=== PATIENT | male | born 1945 | race Caucasian/White ===

== ENCOUNTER 2018-05-16 19:30 | Outpatient (CLI) | payer MEDICARE | END 2018-05-16 19:31 | disposition home or self-care (01) | LOC: SLEEPLAB 19:30 | PROVIDERS: ATTEND Internal Medicine | DX: G47.33 Obstructive sleep apnea (adult) (pediatric) (principal); R53.83 Other fatigue; R35.1 Nocturia; G47.31 Primary central sleep apnea | CPT/HCPCS: 95811 ==

== ENCOUNTER 2018-06-21 19:30 | Outpatient (CLI) | payer MEDICARE | END 2018-06-21 19:31 | disposition home or self-care (01) | LOC: SLEEPLAB 19:30 | PROVIDERS: ATTEND Internal Medicine | DX: G47.33 Obstructive sleep apnea (adult) (pediatric) (principal); G47.31 Primary central sleep apnea; I48.91 Unspecified atrial fibrillation | CPT/HCPCS: 95811 ==

== ENCOUNTER 2018-08-10 19:30 | Outpatient (CLI) | payer MEDICARE, OTHER | END 2018-08-10 19:31 | disposition home or self-care (01) | LOC: SLEEPLAB 19:30 | PROVIDERS: ATTEND Internal Medicine | DX: G47.33 Obstructive sleep apnea (adult) (pediatric) (principal); R53.83 Other fatigue; R51 Headache; E66.9 Obesity, unspecified; R35.1 Nocturia; G47.31 Primary central sleep apnea; Z68.33 Body mass index [BMI] 33.0-33.9, adult | CPT/HCPCS: 95811 ==

== ENCOUNTER 2019-08-10 14:04 | Outpatient (CLI) | payer MEDICARE, OTHER ==
--- NOTE | 2019-08-10 15:12 | RAD ---
LUMBAR SPINE 3 VIEWS: HISTORY: Low back pain. FINDINGS: Degenerative changes are present. No fracture, subluxation, or bone destruction is identified. Vasc ular calcifications are noted. IMPRESSION: Lumbar spondylosis. POS: [facility]
== END 2019-08-10 14:05 | disposition home or self-care (01) ==
LOC: RAD-FRANK 14:04
PROVIDERS: ATTEND Nurse Practitioner Family
DX: M54.5 Low back pain (principal); M47.816 Spondylosis without myelopathy or radiculopathy, lumbar region
CPT/HCPCS: 72100

== ENCOUNTER 2021-06-22 14:48 | Inpatient (IN) | payer MEDICARE, OTHER ==
[2021-06-22 15:36] LABS: #Basophils 0.1 thou/uL (0.0-0.2); #Eosinphils 0.1 thou/uL (0.0-0.7); #Monocytes 0.4 thou/uL (0.11-0.59); #Neutrophils 7.1 thou/uL (1.40-6.50); %Basophils 0.8 % (0.0-1.0); %Eosinophils 1.2 % (0.0-10.0); %Lymphocytes 11.5 % (21.0-51.0); %Monocytes 4.6 % (0.0-10.0); Hemoglobin 13.5 g/dL (14.0-18.0); Mean Corpuscular HGB CONC 34.8 g/dL (32.0-36.0); Mean Corpuscular Hemoglobin 34.1 pg (27.0-31.0); Mean Platelet Volume 7.7 fL (7.4-10.4); Platelet Count 278 thou/uL (130-400); RBC Distribution Width 12.7 % (11.5-14.5); Red Blood Cell (RBC) Count 3.96 mill/uL (4.70-6.10); White Blood Cell (WBC) Count 8.7 thou/uL (4.8-10.8)
[2021-06-22 15:59] LABS: ALT (SGPT) 28 U/L (8-55); AST (SGOT) 37 U/L (5-34); Albumin 3.5 g/dL (3.4-4.8); Alkaline Phosphatase 83 U/L (40-110); Anion Gap 17 mmol/L (10-20); BUN (Urea Nitrogen) 26 mg/dL (8.4-25.7); Bilirubin, Total 0.9 mg/dL (0.2-1.2); Calc. Creatinine Clearance 0 mL/min (70-130); Calcium 9.4 mg/dL (7.8-10.44); Carbon Dioxide 24 mmol/L (23-31); Chloride 95 mmol/L (98-107); Globulin 4.2 g/dL (2.4-3.5); Glucose 309 mg/dL (83-110); Potassium 4.2 mmol/L (3.5-5.1); Protein, Total 7.7 g/dL (5.8-8.1); Sodium 132 mmol/L (136-145)
[2021-06-22] MEDS ORDERED: Aspirin Chewable 81 MG TAB ONE (17:09)
[2021-06-22 18:34] LABS: INR-International Normal Ratio 2.2; Prothrombin Time 24.7 sec (12.0-14.7)
[2021-06-22 18:36] LABS: PTT 52.6 sec (22.9-36.1)
[2021-06-22] MEDS ORDERED: Acetaminophen 500 MG TAB ONE (19:15)
[2021-06-22 19:16] LABS: Troponin I 0.028 ng/mL (< 0.028)
[2021-06-22] MEDS ORDERED: Ondansetron PF 4 MG/2 ML Vial IVP PRN (20:30)
[2021-06-22] MEDS ORDERED: Acetaminophen 325 MG TAB PO PRN (20:30)
[2021-06-22] MEDS ORDERED: Ondansetron ODT 4 MG TAB SL PRN (20:30)
[2021-06-22 20:50] VITALS: BMI 33.7
[2021-06-22] MEDS ORDERED: Dexamethasone 4 mg/ml Vial SLOW IVP SCH (21:18)
[2021-06-22] MEDS ORDERED: HumaLOG 300 UNITS/3 ML VIAL SC PRN ×2 (21:24)
[2021-06-22] MEDS ORDERED: Dextrose 5% in Water 1,000 ML IV PRN (21:24)
[2021-06-22] MEDS ORDERED: Dextrose 50% Abboject 50 ML SYRINGE SLOW IVP PRN (21:24)
[2021-06-22] MEDS ORDERED: Enoxaparin Sodium 40 MG/0.4 ML SYRINGE SC SCH (21:30)
[2021-06-22 22:00] LABS: Troponin I 0.026 ng/mL (< 0.028)
[2021-06-23 05:27] LABS: #Lymphocytes 0.6 thou/uL (1.20-3.40); #Monocytes 0.2 thou/uL (0.11-0.59); %Basophils 0.2 % (0.0-1.0); %Eosinophils 0.2 % (0.0-10.0); %Lymphocytes 9.3 % (21.0-51.0); %Monocytes 3.6 % (0.0-10.0); %Neutrophils 86.7 % (42.0-75.0); Mean Corpuscular HGB CONC 33.6 g/dL (32.0-36.0); Mean Corpuscular Hemoglobin 33.2 pg (27.0-31.0); Mean Corpuscular Volume 98.8 fL (78.0-98.0); Mean Platelet Volume 7.6 fL (7.4-10.4); Platelet Count 231 thou/uL (130-400); RBC Distribution Width 12.7 % (11.5-14.5); Red Blood Cell (RBC) Count 3.62 mill/uL (4.70-6.10); White Blood Cell (WBC) Count 6.9 thou/uL (4.8-10.8)
[2021-06-23 05:46] LABS: Anion Gap 15 mmol/L (10-20); BUN (Urea Nitrogen) 24 mg/dL (8.4-25.7); Calc. Creatinine Clearance 64 mL/min (70-130); Calcium 8.6 mg/dL (7.8-10.44); Carbon Dioxide 22 mmol/L (23-31); Chloride 100 mmol/L (98-107); Glucose 288 mg/dL (83-110); Potassium 4.3 mmol/L (3.5-5.1); Sodium 133 mmol/L (136-145)
[2021-06-23] MEDS: Cholecalciferol (Vitamin D3) 400 UNITS TAB PO SCH (07:44)
[2021-06-23] MEDS: Zinc Sulfate 220 MG CAP PO SCH (07:44)
[2021-06-23] MEDS: Ascorbic Acid 500 mg Chewable Tablet PO SCH (07:44)
[2021-06-23] MEDS: Dexamethasone 4 mg/ml Vial SLOW IVP SCH (07:45)
[2021-06-23] MEDS ORDERED: Dextrose 5% in Water 1,000 ML IV PRN (08:06)
[2021-06-23] MEDS ORDERED: Dextrose 50% Abboject 50 ML SYRINGE SLOW IVP PRN (08:06)
[2021-06-23] MEDS: glipiZIDE 10 MG TAB PO SCH ×2 (08:42→20:52)
[2021-06-23] MEDS: Carvedilol 6.25 MG TAB PO SCH ×2 (08:42→20:52)
[2021-06-23] MEDS: Multivitamin W/ Minerals 1 TAB PO SCH (08:42)
[2021-06-23] MEDS: Azithromycin 250 MG TAB PO SCH (08:43)
[2021-06-23] MEDS: Pantoprazole 40 MG VIAL IVP SCH (08:43)
[2021-06-23] MEDS: Bumetanide 1 MG TAB PO SCH (08:43)
[2021-06-23] MEDS: Atorvastatin Calcium 40 MG TAB PO SCH (08:43)
[2021-06-23] MEDS: Allopurinol 100 MG TAB PO SCH (08:43)
[2021-06-23] MEDS: cefTRIAXone\\ROCEPHIN 2 GM in Sodium Chloride 0.9% 100 ML IVPB SCH (08:44)
[2021-06-23] MEDS ORDERED: SAW PALMETTO 450 MG PO SCH (09:00)
[2021-06-23] MEDS ORDERED: Enoxaparin Sodium 40 MG/0.4 ML SYRINGE SC SCH (09:00)
[2021-06-23] MEDS ORDERED: Non-Formulary Item 1 EACH (Bumetanide [Bumetanide] 2 MG Tablet) PO SCH (09:00)
[2021-06-23] MEDS ORDERED: Non-Formulary Item 1 EACH (Levothyroxine Sodium [Levothyroxine] 125 MCG Capsule) PO SCH (09:00)
[2021-06-23] MEDS: Insulin Regular 300 UNITS/3 ML VIAL SC PRN ×3 (10:57→20:51)
[2021-06-23 11:36] LABS: SARS-CoV-2 PCR by NAA DETECTED (NotDetected)
[2021-06-23] MEDS: Warfarin Sodium 7.5 MG TAB PO SCH (16:01)
[2021-06-23] MEDS: Benzonatate 100 MG CAP PO PRN (20:51)
[2021-06-23] MEDS: Lantus 1000 UNITS/10 ML VIAL SC SCH (21:17)
[2021-06-23 23:23] LABS: Anion Gap 18 mmol/L (10-20); BUN (Urea Nitrogen) 32 mg/dL (8.4-25.7); Calc. Creatinine Clearance 51 mL/min (70-130); Calcium 7.9 mg/dL (7.8-10.44); Carbon Dioxide 19 mmol/L (23-31); Chloride 100 mmol/L (98-107); Glucose 482 mg/dL (83-110); Potassium 4.3 mmol/L (3.5-5.1); Sodium 133 mmol/L (136-145)
[2021-06-24] MEDS ORDERED: Insulin Regular 300 UNITS/3 ML VIAL SC SCH (00:45)
[2021-06-24] MEDS: Levothyroxine Sodium 125 MCG TAB PO SCH (05:09)
[2021-06-24 05:51] LABS: #Lymphocytes 0.6 thou/uL (1.20-3.40); #Monocytes 0.4 thou/uL (0.11-0.59); #Neutrophils 8.1 thou/uL (1.40-6.50); %Basophils 0.1 % (0.0-1.0); %Eosinophils 0.3 % (0.0-10.0); %Lymphocytes 6.9 % (21.0-51.0); %Monocytes 4.2 % (0.0-10.0); %Neutrophils 88.5 % (42.0-75.0); Hemoglobin 12.5 g/dL (14.0-18.0); Mean Corpuscular HGB CONC 34.7 g/dL (32.0-36.0); Mean Corpuscular Hemoglobin 33.9 pg (27.0-31.0); Mean Corpuscular Volume 97.9 fL (78.0-98.0); Mean Platelet Volume 7.7 fL (7.4-10.4); Platelet Count 304 thou/uL (130-400); RBC Distribution Width 12.8 % (11.5-14.5); Red Blood Cell (RBC) Count 3.67 mill/uL (4.70-6.10); White Blood Cell (WBC) Count 9.2 thou/uL (4.8-10.8)
[2021-06-24 05:58] LABS: Prothrombin Time 31.4 sec (12.0-14.7)
[2021-06-24 06:17] LABS: Anion Gap 14 mmol/L (10-20); BUN (Urea Nitrogen) 30 mg/dL (8.4-25.7); CRP (Inflammatory) 11.53 mg/dL (= or < 0.5); Calc. Creatinine Clearance 57 mL/min (70-130); Calcium 9.1 mg/dL (7.8-10.44); Carbon Dioxide 25 mmol/L (23-31); Chloride 101 mmol/L (98-107); Glucose 345 mg/dL (83-110); Potassium 4.1 mmol/L (3.5-5.1); Sodium 136 mmol/L (136-145)
[2021-06-24] MEDS: Insulin Regular 300 UNITS/3 ML VIAL SC PRN ×4 (06:30→20:39)
[2021-06-24] MEDS ORDERED: Dextrose 5% in Water 1,000 ML IV PRN (07:43)
[2021-06-24] MEDS ORDERED: Dextrose 50% Abboject 50 ML SYRINGE SLOW IVP PRN (07:43)
[2021-06-24] MEDS: Allopurinol 100 MG TAB PO SCH (08:48)
[2021-06-24] MEDS: Azithromycin 250 MG TAB PO SCH (08:49)
[2021-06-24] MEDS: Atorvastatin Calcium 40 MG TAB PO SCH (08:49)
[2021-06-24] MEDS: Ascorbic Acid 500 mg Chewable Tablet PO SCH (08:49)
[2021-06-24] MEDS: Bumetanide 1 MG TAB PO SCH (08:50)
[2021-06-24] MEDS: Carvedilol 6.25 MG TAB PO SCH ×2 (08:51→20:39)
[2021-06-24] MEDS: cefTRIAXone\\ROCEPHIN 2 GM in Sodium Chloride 0.9% 100 ML IVPB SCH (08:52)
[2021-06-24] MEDS: Dexamethasone 4 mg/ml Vial SLOW IVP SCH (08:53)
[2021-06-24] MEDS: Cholecalciferol (Vitamin D3) 400 UNITS TAB PO SCH (08:53)
[2021-06-24] MEDS: glipiZIDE 10 MG TAB PO SCH ×2 (08:55→20:40)
[2021-06-24] MEDS: Lantus 1000 UNITS/10 ML VIAL SC SCH ×2 (08:57→20:40)
[2021-06-24] MEDS: Multivitamin W/ Minerals 1 TAB PO SCH (08:58)
[2021-06-24] MEDS: Zinc Sulfate 220 MG CAP PO SCH (08:59)
[2021-06-24] MEDS: Pantoprazole 40 MG VIAL IVP SCH (10:09)
[2021-06-24] MEDS: SAW PALMETTO 450 MG PO SCH ×2 (10:19→10:20)
[2021-06-24] MEDS: Warfarin Sodium 7.5 MG TAB PO SCH (17:06)
[2021-06-24] MEDS: Benzonatate 100 MG CAP PO PRN (20:40)
[2021-06-25] MEDS: Levothyroxine Sodium 125 MCG TAB PO SCH (05:34)
[2021-06-25] MEDS: Insulin Regular 300 UNITS/3 ML VIAL SC PRN ×2 (05:39→10:28)
[2021-06-25 06:09] LABS: Prothrombin Time 40.3 sec (12.0-14.7)
[2021-06-25 06:16] LABS: INR-International Normal Ratio 4.1
[2021-06-25] MEDS ORDERED: Warfarin Sodium 7.5 MG TAB PO SCH (06:30)
[2021-06-25] MEDS: Ascorbic Acid 500 mg Chewable Tablet PO SCH (08:44)
[2021-06-25] MEDS: Cholecalciferol (Vitamin D3) 400 UNITS TAB PO SCH (08:44)
[2021-06-25] MEDS: Atorvastatin Calcium 40 MG TAB PO SCH (08:44)
[2021-06-25] MEDS: Azithromycin 250 MG TAB PO SCH (08:44)
[2021-06-25] MEDS: Zinc Sulfate 220 MG CAP PO SCH (08:47)
[2021-06-25] MEDS: Allopurinol 100 MG TAB PO SCH (08:47)
[2021-06-25] MEDS: glipiZIDE 10 MG TAB PO SCH (08:47)
[2021-06-25] MEDS: Multivitamin W/ Minerals 1 TAB PO SCH (08:47)
[2021-06-25] MEDS: Bumetanide 1 MG TAB PO SCH (08:50)
[2021-06-25] MEDS: Carvedilol 6.25 MG TAB PO SCH (08:51)
[2021-06-25] MEDS: Lantus 1000 UNITS/10 ML VIAL SC SCH (08:51)
[2021-06-25] MEDS ORDERED: cefTRIAXone\\ROCEPHIN 2 GM in Sodium Chloride 0.9% 100 ML IVPB SCH (09:00)
[2021-06-25 12:39] VITALS: BP 117/78; TEMP 97.6
[2021-06-25] MEDS: cefTRIAXone\\ROCEPHIN 2 GM in Sodium Chloride 0.9% 100 ML IVPB SCH (12:46)
[2021-06-26] MEDS ORDERED: Dexamethasone 4 MG TAB PO SCH (08:00)
== END 2021-06-25 13:35 | disposition home or self-care (01) | DRG 177 ==
LOC: ERS 14:48 → 2SW 17:50 → OBSVTOIN 06-23 08:11
PROVIDERS: ADMIT Internal Medicine; ATTEND Hospitalist
PROC: 8E0ZXY6 Isolation (ICD-10-PCS; principal; 2021-06-23)
PROC: 3E0333Z Introduction of Anti-inflammatory into Peripheral Vein, Percutaneous Approach (ICD-10-PCS; 2021-06-23)
DX: U07.1 COVID-19 (principal); J96.01 Acute respiratory failure with hypoxia; J12.82 Pneumonia due to coronavirus disease 2019; I48.20 Chronic atrial fibrillation, unspecified; I13.0 Hypertensive heart and chronic kidney disease with heart failure and stage 1 through stage 4 chronic kidney disease, or unspecified chronic kidney disease; G47.33 Obstructive sleep apnea (adult) (pediatric); I50.9 Heart failure, unspecified; E78.5 Hyperlipidemia, unspecified; E03.9 Hypothyroidism, unspecified; I25.10 Atherosclerotic heart disease of native coronary artery without angina pectoris; E11.22 Type 2 diabetes mellitus with diabetic chronic kidney disease; N18.30 Chronic kidney disease, stage 3 unspecified; Z79.899 Other long term (current) drug therapy; Z79.01 Long term (current) use of anticoagulants; Z95.1 Presence of aortocoronary bypass graft; I25.2 Old myocardial infarction
CPT/HCPCS: 36415; 36416; 71045; 71275; 80048; 80053; 83605; 83880; 84484; 85025; 85379; 85610; 85730; 86140; 87070; 87205; 93005; C9113; J0696; J1100; J1650; J1815; J3490; U0003; U0005